=== PATIENT | male | born 1970 | race Caucasian/White ===

== ENCOUNTER 2020-10-08 10:16 | Emergency (ER) | payer SELFPAY ==
[2020-10-08 10:19] VITALS: BP 128/76; PULSE 83; RESP 16; TEMP 36.6; O2SAT 96; BMI 29.9
--- NOTE | 2020-10-08 10:33 | ED.GENADULT ---
HPI - General Adult General Chief complaint: General Medical Stated complaint: insect bite Time Seen by Provider: 10/08/20 10:33 Source: patient Limitations: no limitations History of Present Illness HPI narrative: Patient prevents with left thigh redness after being stung or bit by an insect approximately a day and half ago. Patient states the redness has increased. Patient states he waited in the ER 4 hours yesterday was never seen. Patient denies any allergies to antibiotics. Patient denies shortness of breath fever chills. Patient states he has been fully vaccinated for COVID-19. Patient takes no current medications and denies past medical history. Symptoms are mild at this time Related Data Previous Rx's Medication Instructions Recorded cephalexin 500 mg PO TID 10 Days #30 cap 10/08/20 doxycycline hyclate 100 mg PO BID 10 Days #20 cap 10/08/20 Allergies Allergy/AdvReac Type Severity Reaction Status Date / Time No Known Allergies Allergy Unverified 12/12/19 17:14 Review of Systems Constitutional: Constitutional: Denies chills, Denies fever(s) and Denies headache(s) ENT: Denies headache(s) Cardiovascular: Cardiovascular: Denies chest pain and Denies dyspnea Respiratory: Respiratory: Denies cough and Denies dyspnea Gastrointestinal: Gastrointestinal: Denies diarrhea, Denies nausea and Denies vomiting Neurologic: Denies headache(s) Allergic/Immunologic: Comments: Left inner thigh or erythema redness PMFSH Past Medical History Attestation statement: The following information was validated with the patient. Social History Social History Advance Directives: Yes Advance Directives Information Provided: Yes Advance Directives on File: No Physical Exam Vital Signs: Vital Signs: Last Vital Signs Temp 97.8 F 10/08/20 10:19 Pulse 83 10/08/20 10:19 Resp 16 10/08/20 10:19 BP 128/76 10/08/20 10:19 Pulse Ox 96 10/08/20 10:19 Body Mass Index 29.9 vital signs have been reviewed as normal and appeared to be correct. Blood pressure normal. Heart rate normal. Respiration rate normal. Temperature normal. Oxygen saturation normal. Appearance: Alert. Oriented X3. No acute distress. Head: Normal external exam. Normocephalic. Atraumatic. Eyes: PERRLA. EOMI. Conjunctiva and sclera normal. Eyelids normal. ENT: Pharynx normal. Uvula midline. Moist mucous membranes. Neck: Soft full range of motion CVS: Heart regular rate and rhythm no murmurs and rubs Respiratory: Breath sounds are clear to auscultation bilaterally. No accessory muscle use noted. Skin: Left inner thigh areas erythema size of palm no area of lymphangitis at this time no obvious abscess or pain on palpation Extremities: No lower extremity edema. Extremities exhibit normal range of motion. Neuro: Oriented X 3. No motor deficit. No sensory deficit. Reflexes normal. 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-house Plan the patient patient on doxycycline and Keflex at this time follow-up and return if symptoms worsen Discharge Plan Discharge Clinical Impression: Cellulitis Patient Disposition: Home, Self-Care Instructions: Cellulitis (ED) Additional Instructions: Return if increased redness pain or fever Finish antibiotics as directed Prescriptions: New doxycycline hyclate 100 mg capsule 100 mg PO BID 10 Days Qty: 20 RF: 0 cephalexin 500 mg capsule 500 mg PO TID 10 Days Qty: 30 RF: 0 Stand Alone Forms: Work/School Release Interventions: ED Discharge Assessment Last Done: 10/08/20 11:01 Discharge Date/Time: 10/08/20 11:01
== END 2020-10-08 11:01 | disposition home or self-care (01) ==
PROVIDERS: Emergency Provider Emergency Medicine
DX: L03.116 Cellulitis of left lower limb (principal)
CPT/HCPCS: 99282; 99283

== ENCOUNTER 2021-12-02 08:55 | Emergency (ER) | payer SELFPAY ==
[2021-12-02 08:59] VITALS: BP 134/77; PULSE 71; RESP 16; TEMP 37.1; O2SAT 98; BMI 35.7
--- NOTE | 2021-12-02 09:46 | ED.BACK ---
HPI - Back Pain/Injury General Chief Complaint: Back Pain/Injury Stated Complaint: back pain work related Time Seen by Provider: 12/02/21 09:32 Source: patient Mode of arrival: ambulatory Limitations: language barrier (Senegalese-speaking) History of Present Illness HPI Narrative: 51-year-old male presenting to the ER with complaints of left lower back pain near his buttocks radiating to the buttock/left lower leg that started yesterday after he was doing yd work. He denies ever having back pain in the past although reports his was massaging his back/ buttocks yesterday and he reported that that was making his pain a bit better. He reports he took [id number] medication no symptomatic relief. He denies any recent falls or trauma. He denies any fevers, chills, dizziness, headaches, neck pain / stiffness, trouble swallowing or breathing, chest pain or shortness of breath, dyspnea exertion, orthopnea, palpitation paresthesias, abdominal pain, flank pain, dysuria, hematuria, abnormal penile discharge, rashes, others with similar symptoms, any history of IV drug use, urinary bowel incontinence or retention or any other symptoms complaints or concerns at this time. MD elicited complaint: back pain Onset (ago): day(s) (yesterday) Timing: constant and progressively worsening Severity: moderate Similar Symptoms Previously: No Quality: aching, spasming and throbbing Location: left lower back (near buttocks) Radiation: left upper leg Exacerbating factors: movement, sitting upright, walking and lifting Relieving factors: none Context: while lifting, turning/twisting and bending Associated symptoms: denies other symptoms Treatments prior to arrival: cold therapy, heat therapy, NSAIDS and acetaminophen Work related injury: No Related Data Previous Rx's Medication Instructions Recorded cephalexin 500 mg capsule 500 mg PO TID 10 days #30 caps 10/08/20 doxycycline hyclate 100 mg capsule 100 mg PO BID 10 days #20 caps 10/08/20 cyclobenzaprine 10 mg tablet 10 mg PO Q8H #14 tabs 12/02/21 ibuprofen 800 mg tablet 800 mg PO Q8H PRN pain #14 tabs 12/02/21 oxycodone 5 mg tablet 5 mg PO Q6H PRN pain #14 tabs 12/02/21 prednisone 20 mg tablet 40 mg PO DAILY rash 5 days #10 tabs 12/02/21 Allergies Allergy/AdvReac Type Severity Reaction Status Date / Time No Known Allergies Allergy Unverified 12/12/19 17:14 Review of Systems Review of Systems: Constitutional : No trauma, No Weight loss, No Fever, No Chills, ENT/Mouth : No Hearing loss, No Ear Pain, No Nasal Congestion, No Sinus Pain, No Hoarseness, No sore throat, No Rhinorrhea, No Swallowing Difficulty Cardiovascular : No Chest Pain, No SOB Respiratory : No Cough, No Dyspnea Gastrointestinal : No Nausea, No Vomiting, No Diarrhea, No abdominal Pain, No Hematochezia, No Melena Genitourinary : No Dysuria, No Urinary Frequency, No Hematuria, No Urinary or Bowel Incontinence/retention Musculoskeletal : + Back pain, No neck pain, No joint stiffness, No joint swelling Skin : No Skin Lesions, No rash or signs of infection Neuro : No Weakness, No Numbness, No Paresthesias, No headache, no loss of bowel or bladder incontinence, no saddle anesthesia, Focal weakness, + radiation Denies history of IV drug usage. Yes all other systems are reviewed and are negative [facility] Past Medical History Attestation statement: The following information was validated with the patient. Source: old records reviewed and nursing notes reviewed Social History Social History Advance Directives: No Advance Directives Information Provided: No Physical Exam Vital Signs: Vital Signs: Last Vital Signs Temp 98.8 F 12/02/21 08:59 Pulse 71 12/02/21 08:59 Resp 16 12/02/21 08:59 BP 134/77 12/02/21 08:59 Pulse Ox 98 12/02/21 08:59 O2 Del Method 12/02/21 08:59 BMI result Body Mass Index 35.7 vital signs have been reviewed as normal and appeared to be correct. Blood pressure normal. Heart rate normal. Respiration rate normal. Temperature normal. Oxygen saturation normal. Appearance: Alert. Oriented X3. No acute distress. Head: Normal external exam. Normocephalic. Atraumatic. No [place] signs noted. No raccoon eyes noted Eyes: PERRLA. EOMI. Conjunctiva and sclera normal. Eyelids normal. ENT: EAC normal. TM's Normal. Pharynx normal. Uvula midline. Moist mucous membranes. No trismus noted. No drooling noted. No muffled voice noted. Neck: Normal inspection. Neck supple. FROM. No adenopathy. Thyroid Normal. No meningeal signs. No neck mass noted. CVS: Normal heart rate and rhythm. Heart sound normal. No murmurs noted. Pulses normal throughout. Respiratory: No respiratory distress. Painless inspiration. Breath sounds normal. No wheezes/rales/rhonchi noted. Chest nontender. No accessory muscle usage noted or decreased air movement noted. Abdomen: Soft and nontender. Bowel sounds normal in all 4 quadrants. No distention noted. No organomegaly noted. No visible injury noted. Back: No CVA tenderness. Full range of motion noted. No obvious deformities, or edema. Mild para-spinal muscular tenderness from lumbar region to coccyx. Full ROM in back and lower extremities. 5/5 strength hip extension/flexion, abduction, adduction. Mild Lumbar pain with hip flexion against resistance. Straight leg raise test negative on right; Straight leg raise test negative on left; Reflexes normal ankle and knee bilaterally; EHL motor strength normal bilaterally. No rashes/lesion/induration/fluctuance or signs infection noted. Skin: Skin warm and dry. Normal skin color. Normal skin turgor. No rashes/lesions/lacerations noted. Extremities: No lower extremity edema. Extremities exhibit normal range of motion. Extremities nontender. Neuro: Oriented X 3. No motor deficit. No sensory deficit. Reflexes normal. Patient has a normal steady gait. Course Course Course Narrative: Pt c likely muscular pain, but could be herniated disc. Neuro exam shows no deficits. Not c/w AAA/epidural abscess/dissection.No high risk Hx (Incont, fever, immunosupp, recent surgery/LP, coag, signif trauma, wt loss, puls mass, hx/o Ca, TB, or IVDU) to warrant MRI/CT today. Not c/w Pyelo/UTI/kidney stone/spinal fx. Not cauda equina syndrome. Imaging not currently indicated. DC c meds and f/u. MDM - Back Pain/Injury Medical Records Attestation: I reviewed the patient's medical records. Discharge Plan Discharge Clinical Impression: Strain of lumbar region, Lumbar radiculopathy Patient Disposition: Home, Self-Care Instructions: Low Back Strain (ED), Lumbar Radiculopathy (ED), Lower Back Exercises (ED) Prescriptions: New cyclobenzaprine 10 mg tablet 10 mg PO Q8H Qty: 14 0RF oxycodone 5 mg tablet 5 mg PO Q6H PRN (Reason: pain) Qty: 14 0RF Rx Instructions: Partial Fill upon patient request. prednisone 20 mg tablet 40 mg PO DAILY 5 Days Qty: 10 0RF ibuprofen 800 mg tablet 800 mg PO Q8H PRN (Reason: pain) Qty: 14 0RF No Action doxycycline hyclate 100 mg capsule 100 mg PO BID 10 Days Qty: 20 0RF cephalexin 500 mg capsule 500 mg PO TID 10 Days Qty: 30 0RF Print Language: Senegalese
[2021-12-02] MEDS: oxyCODONE HCl Immed Release 5 MG TABLET PO (10:08)
[2021-12-02] MEDS: Cyclobenzaprine HCl 10 MG TABLET PO (10:08)
== END 2021-12-02 10:13 | disposition home or self-care (01) ==
PROVIDERS: Emergency Provider Emergency Medicine Emergency Medical Services
DX: M54.16 Radiculopathy, lumbar region (principal); Z79.899 Other long term (current) drug therapy
CPT/HCPCS: 99283

== ENCOUNTER 2023-08-30 08:48 | Outpatient (AMB) | payer OTHER, SELFPAY ==
--- NOTE | 2023-08-30 08:59 | A.OFFPC_ITS ---
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 Review of the notes ER visit 12/14/2021 for back pain doing yd work was given muscle relaxants steroids anti-inflammatory and narcotic. 10/13/2020 ear visit for an insect bite treated as cellulitis doxycycline cephalexin. [facility] Family History (Updated 08/30/23 @ 09:48 by Mely Wesley MD) Mother Diabetes Hypertension Hypercholesterolemia Father Skin cancer Colon cancer Brother No problems noted. Brother No problems noted. Sister No problems noted. Sister No problems noted. Daughter No problems noted. Son No problems noted. Son No problems noted. Social History (Updated 08/30/23 @ 09:51 by Mely Wesley MD) Housing: House Alcohol intake: never Patient Tobacco Use Status: Never used Tobacco Tobacco use type: Cigarette e-Cigarette/Vaping Use: Never Used Second Hand Smoke Exposure: No service: No Current occupational status: employed Cognitive needs: No Hearing needs: No Vision needs: No Questionnaire PHQ-9 Over the last 2 weeks, how often have you been bothered by any of the following problems? 1. Little interest or pleasure in doing things: not at all 2. Feeling down, depressed, or hopeless: not at all 3. Trouble falling or staying asleep, or sleeping too much: not at all 4. Feeling tired or having little energy: not at all 5. Poor appetite or overeating: not at all 6. Feeling bad about yourself - or that you are a failure or have let yourself or your family down: not at all 7. Trouble concentrating on things, such as reading the newspaper or watching television: not at all 8. Moving or speaking so slowly that other people could have noticed. Or the opposite - being so fidgety or restless that you have been moving around a lot more than usual: not at all 9. Thoughts that you would be better off or of hurting yourself in some way: not at all Total score: 0 Depression Screening Interpretation: Negative Depression Screening Done: Yes Source: Developed by Drs. Rufus Langston, Gemma Tobar, Constantine Ferrer and colleagues, with an educational gloria from [employer]. Thrive Questionnaire Date Thrive assessed: 08/30/23 I am a: Patient What is your living situation today?: I have a steady place to live Within the past 12 months, did the food you bought not last and you didn't have the money to get more?: Never true Within the past 12 months, did you worry whether your food would run out before you got money to buy more?: Never true Do you have trouble paying for medicines?: No Do you have trouble getting transportation to medical appointments?: No Do you have trouble paying your heating and electricity bill?: No Do you have trouble taking care of your child, family member or friend?: No Do you have trouble with day-to-day activities such as bathing, preparing meals, shopping, managing finances, etc.?: No Are you currently unemployed and looking for a job?: No Are you interested in more education?: No Currently or been in a relationship where the following occur: no concerns reported THRIVE Score: 0 AUDIT C Alcohol Use Questionnaire (AUDIT-C) 1. How often do you have a drink containing alcohol?: Never 3. How often do you have six or more drinks on one occasion?: Never Total Score: 0 TONY-7 AMB Questionnaire TONY-7 Date TONY - 7 assessed: 08/30/23 Feeling nervous, anxious, or on edge: 0 = Not at all Not being able to stop or control worryin = Not at all Worrying too much about different things: 0 = Not at all Trouble relaxin = Not at all Being so restless that it is hard to sit still: 0 = Not at all Becoming easily annoyed or irritable: 0 = Not at all Feeling afraid as if something awful might happen: 0 = Not at all Total TONY-7 score (0-4 normal; 5-9 mild; 10-14 moderate; 15-21 severe): 0 Source: Developed by Drs. Rufus Langston, Gemma Tobar, Constantine Ferrer and colleagues, with an educational gloria from [employer]. Physical exam (Primary Care) Vital Signs: Last Vital Signs Pulse 89 08/30/23 09:00 BP 140/88 H 08/30/23 09:00 Pulse Ox 99 08/30/23 09:00 Oxygen Delivery Method Room Air 08/30/23 09:00 BMI result Body Mass Index 36.8 Tobacco/Smoking Status: Tobacco use Status Tobacco use date assessed 08/30/23 08/30/23 09:11 Patient Tobacco Use Status Never used Tobacco 08/30/23 09:11 Tobacco use type Cigarette 08/30/23 09:11 e-Cigarette/Vaping Use Never Used 08/30/23 09:11 PHQ-9: PHQ-9 Score PHQ-9: Total score 0 08/30/23 09:11 Depression Screening Interpretation: Negative Thrive Assessment: Date of Thrive Assessment Date Thrive assessed 08/30/23 08/30/23 09:11 Currently or been in a relationship where the following occur: no concerns reported Const General: alert; No acute distress Eyes Conjunctivae: conjunctivae normal Resp Auscultation: clear to auscultation bilaterally Cardio Rate: regular rate Rhythm: regular rhythm GI Inspection: Yes normal to inspection Extrem General: Yes normal to inspection and No edema Assessment and Plan Assessment & Plan (1) History of right knee surgery: Code(s): Z98.890 - Other specified postprocedural states (2) Impaired glucose tolerance: Code(s): R73.02 - Impaired glucose tolerance (oral) Plan: Decrease the amount of carbohydrate intake, pasta, bread, rice and potatoes are all sugar and that is aside from all the sweet stuff, remember that fruits are good but they are Sweet also. (3) Hypercholesterolemia: Code(s): E78.00 - Pure hypercholesterolemia, unspecified Plan: Avoid fried foods, chicken skin, eggs, butter margarine, pastries and meat. Be it pork or beef they have a lot of cholesterol (4) Colon cancer screening: Code(s): Z12.11 - Encounter for screening for malignant neoplasm of colon Plan: Patient is reminded about colon cancer screening. (5) Family history of colon cancer: Comment: father 62 years old Code(s): Z80.0 - Family history of malignant neoplasm of digestive organs (6) Family history of skin cancer: Code(s): Z80.8 - Family history of malignant neoplasm of other organs or systems Orders: Orders Hemoglobin A1c Today R73.02 - Impaired glucose tolerance (oral) Comprehensive Met. Panel Today R73.02 - Impaired glucose tolerance (oral) Vitamin B12 and Folate Today E78.00 - Pure hypercholesterolemia, unspecified Prostate Specific Antigen Scr Today E78.00 - Pure hypercholesterolemia, unspecified Free T4 (Free Thyroxine) Today E78.00 - Pure hypercholesterolemia, unspecified Complete Blood Count Auto Diff Today E78.00 - Pure hypercholesterolemia, unspecified Lipid Panel Today E78.00 - Pure hypercholesterolemia, unspecified Thyroid Stimulating Hormone Today E78.00 - Pure hypercholesterolemia, unspecified Referrals Gastroenterology Referral Z12.11 - Encounter for screening for malignant neoplasm of colon, Z80.0 - Family history of malignant neoplasm of digestive organs Dermatology Referral Z80.8 - Family history of malignant neoplasm of other organs or systems Medications: Discontinued doxycycline hyclate Discontinued Reason: Patient Completed Course 100 mg PO BID 10 days 20 caps 0RF cephalexin Discontinued Reason: Patient Completed Course 500 mg PO TID 10 days 30 caps 0RF cyclobenzaprine Discontinued Reason: Patient no longer taking 10 mg PO Q8H 14 tabs 0RF ibuprofen Discontinued Reason: Patient no longer taking 800 mg PO Q8H PRN 14 tabs 0RF pain oxycodone Partial Fill upon patient request. Discontinued Reason: Patient no longer taking 5 mg PO Q6H PRN 14 tabs 0RF pain prednisone Discontinued Reason: Patient Completed Course 40 mg (2 x 20 mg) PO DAILY 5 days 10 tabs 0RF rash Coding Level of Care Code New Pt Level 4 (13548) Diagnoses History of right knee surgery Z98.890 Impaired glucose tolerance R73.02 Hypercholesterolemia E78.00 Colon cancer screening Z12.11 Family history of colon cancer Z80.0 Family history of skin cancer Z80.8
[2023-08-30 09:00] VITALS: BP 140/88; PULSE 89; O2SAT 99; BMI 36.8
[2023-08-30 09:45] VITALS: BP 120/80
== END 2023-08-30 10:06 | disposition home or self-care (01) ==
PROVIDERS: PCP Internal Medicine; Visit Provider Internal Medicine
DX: Z98.890 Other specified postprocedural states (principal); R73.02 Impaired glucose tolerance (oral); E78.00 Pure hypercholesterolemia, unspecified; Z12.11 Encounter for screening for malignant neoplasm of colon; Z80.0 Family history of malignant neoplasm of digestive organs; Z80.8 Family history of malignant neoplasm of other organs or systems
CPT/HCPCS: 99204

== ENCOUNTER 2023-08-31 07:22 | Outpatient (REF) | payer OTHER, SELFPAY ==
[2023-08-31 07:46] LABS: MANUAL DIFF FLAG NO
[2023-08-31 08:18] LABS: Basophils Percent Auto 0.5 % (0-2); Eosinophils Absolute Auto 0.3 X10*3/uL (0.0-0.4); Eosinophils Percent Auto 5.2 % (0-4); Hematocrit 33.4 % (42.0-52.0); Hemoglobin 11.7 g/dl (14.0-18.0); Imm Gran Abs Auto 0.02 X10*3/uL (0.00-0.03); Imm Gran Pct Auto 0.3 % (0.0-0.4); Lymphocytes Absolute Auto 1.3 X10*3/uL (1.2-4.9); Lymphocytes Percent Auto 23.3 % (20-40); Mean Corpuscular Hemoglobin 29.3 pg (27.0-33.0); Mean Corpuscular Volume 83.5 fL (80.0-98.0); Mean Platelet Volume 11.1 fL (9.4-12.4); Monocytes Absolute Auto 0.5 X10*3/uL (0.1-1.2); Monocytes Percent Auto 8.9 % (2-11); Neutrophils Absolute Auto 3.6 x10*3/uL (2.0-8.3); Neutrophils Percent Auto 61.8 % (45-73); Platelet Count 171 X10*3/uL (160-400); Red Cell Distribution Width 12.3 % (11.0-16.0); White Blood Count 5.8 X10*3/uL (4.8-10.8)
[2023-08-31 08:31] LABS: Estimated Average Glucose 114 mg/dL; Hemoglobin A1c % 5.6 % (<6.0)
[2023-08-31 09:14] LABS: Alanine Aminotransferase 20 U/L (0-40); Albumin Level 4.2 g/dL (3.5-5.0); Alkaline Phosphatase 90 U/L (39-117); Anion Gap 14 (12-20); Aspartate Amino Transferase 18 U/L (5-37); Bilirubin Total 0.6 mg/dL (0.0-1.0); Blood Urea Nitrogen 11 mg/dL (9-16); Calcium 9.3 mg/dL (8.4-10.2); Carbon Dioxide 26 mmol/L (22-29); Chloride 103 mmol/L (96-108); Cholesterol 216 mg/dL (<200); Estimated Glomerular Filt Rate > 60; Glucose Random 101 mg/dL (60-115); HDL Cholesterol 37 mg/dL (>40); LDL Cholesterol Calculated 138 mg/dL (<100); Potassium 4.1 mmol/L (3.3-5.1); Sodium 139 mmol/L (135-145); Total Protein 7.3 g/dL (6.5-8.0); Triglycerides 206 mg/dL (<150)
[2023-08-31 09:33] LABS: Folate 12.2 ng/mL (> or = 4.0); Prostate Specific Antigen Scr 0.33 ng/mL (<0.05-4.0); Vitamin B12 337 pg/mL (200-900)
== END 2023-08-31 07:23 | disposition home or self-care (01) ==
LOC: HO.LAB 07:22
PROVIDERS: PCP Internal Medicine; Visit Provider Internal Medicine
DX: E78.00 Pure hypercholesterolemia, unspecified (principal); R73.02 Impaired glucose tolerance (oral); Z12.5 Encounter for screening for malignant neoplasm of prostate
CPT/HCPCS: 36415; 80053; 80061; 82607; 82746; 83036; 84153; 84439; 84443; 85025

== ENCOUNTER → 2023-09-29 10:56 | Outpatient (BNV) | payer OTHER, SELFPAY | PROVIDERS: PCP Internal Medicine; Referring Provider Internal Medicine; Visit Provider Internal Medicine | DX: D64.9 Anemia, unspecified (principal) | CPT/HCPCS: 99203 ==

== ENCOUNTER 2023-10-03 09:04 | Outpatient (AMB) | payer OTHER, SELFPAY ==
--- NOTE | 2023-10-03 09:18 | MHC.PC.OV ---
Vital Signs 10/03/23 09:19 10/03/23 09:50 Height 5 ft 5 in Weight 222 lb BMI 36.9 BP 140/78 H 130/80 Blood Pressure Location Lt brachial Lt brachial Position Sitting Sitting Pulse 81 Pulse Source Pulse Oximeter Pulse Oximetry (%) 98 Oxygen Delivery Method Room Air Intake Visit Reasons: follow up on labs Intake Note: patient did have coffee prior to coming into appt. Allergies No Known Allergies Allergy (Verified 10/03/23 09:19) Tobacco use date assessed: 08/30/23 Dental Screening Dental Screen Date: 10/03/23 Did you have a dental visit in the last 12 months?: No Did you have a dental problem in the last 6 months where you did not have access to dental care?: No Was dental information given to patient?: No HPI follow up on labs HPI Details 53-year-old obese male with a history of impaired glucose tolerance hypercholesterolemia last seen in 08/30/2023 patient was reminded about colon cancer screening with family history of colon cancer. 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 With regards to his anemia patient was sent to Hematology Oncology mild normocytic anemia was advised to monitor for now. [facility] Family History Mother Diabetes Hypertension Hypercholesterolemia Father Skin cancer Colon cancer Brother No problems noted. Brother No problems noted. Sister No problems noted. Sister No problems noted. Daughter No problems noted. Son No problems noted. Son No problems noted. Social History (Updated 09/29/23 @ 11:14 by Ivan Melendez) Household Members: Family Housing: House Alcohol intake: never Patient Tobacco Use Status: Never used Tobacco Tobacco use type: Cigarette e-Cigarette/Vaping Use: Never Used Second Hand Smoke Exposure: No service: No Current occupational status: employed Cognitive needs: No Hearing needs: No Vision needs: No Questionnaire PHQ-9 Over the last 2 weeks, how often have you been bothered by any of the following problems? 1. Little interest or pleasure in doing things: not at all 2. Feeling down, depressed, or hopeless: not at all 3. Trouble falling or staying asleep, or sleeping too much: not at all 4. Feeling tired or having little energy: not at all 5. Poor appetite or overeating: not at all 6. Feeling bad about yourself - or that you are a failure or have let yourself or your family down: not at all 7. Trouble concentrating on things, such as reading the newspaper or watching television: not at all 8. Moving or speaking so slowly that other people could have noticed. Or the opposite - being so fidgety or restless that you have been moving around a lot more than usual: not at all 9. Thoughts that you would be better off or of hurting yourself in some way: not at all Total score: 0 Depression Screening Interpretation: Negative Depression Screening Done: Yes Source: Developed by Drs. Rufus Langston, Gemma Tobar, Constantine Ferrer and colleagues, with an educational gloria from [employer]. Thrive Questionnaire Date Thrive assessed: 08/30/23 AUDIT C Alcohol Use Questionnaire (AUDIT-C) 1. How often do you have a drink containing alcohol?: Never 3. How often do you have six or more drinks on one occasion?: Never Total Score: 0 TONY-7 AMB Questionnaire TONY-7 Date TONY - 7 assessed: 08/30/23 Source: Developed by Drs. Rufus Langston, Gemma Tobar, Constanitne Ferrer and colleagues, with an educational gloria from [employer]. Physical exam (Primary Care) Vital Signs: Last Vital Signs Pulse 81 10/03/23 09:19 BP 140/78 H 10/03/23 09:19 Pulse Ox 98 10/03/23 09:19 Oxygen Delivery Method Room Air 10/03/23 09:19 BMI result Body Mass Index 36.9 Tobacco/Smoking Status: Tobacco use Status Tobacco use date assessed 08/30/23 10/03/23 09:19 Patient Tobacco Use Status Never used Tobacco 10/03/23 09:19 Tobacco use type Cigarette 10/03/23 09:19 e-Cigarette/Vaping Use Never Used 10/03/23 09:19 PHQ-9: PHQ-9 Score PHQ-9: Total score 0 10/03/23 09:23 Depression Screening Interpretation: Negative Thrive Assessment: Date of Thrive Assessment Date Thrive assessed 08/30/23 10/03/23 09:19 Const General: alert; No acute distress Eyes Conjunctivae: conjunctivae normal Resp Auscultation: clear to auscultation bilaterally Cardio Rate: regular rate Rhythm: regular rhythm GI Inspection: Yes normal to inspection Extrem General: Yes normal to inspection and No edema Assessment and Plan Assessment & Plan (1) Family history of colon cancer: Comment: father 62 years old Code(s): Z80.0 - Family history of malignant neoplasm of digestive organs Plan: Patient has a schedule with the 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 (3) Hypercholesterolemia: Code(s): E78.00 - Pure hypercholesterolemia, unspecified Plan: Avoid fried foods, chicken skin, eggs, butter margarine, pastries and meat. Be it pork or beef they have a lot of cholesterol LDL goal of less than 130 and triglyceride of less than 150 (4) Anemia: Code(s): D64.9 - Anemia, unspecified Plan: Normocytic present since 2012 and will continue to monitor Coding Level of Care Code Est Pt Level 4 (85902) Diagnoses Family history of colon cancer Z80.0 Impaired glucose tolerance R73.02 Hypercholesterolemia E78.00 Anemia D64.9
[2023-10-03 09:19] VITALS: BP 140/78; PULSE 81; O2SAT 98; BMI 36.9
[2023-10-03 09:50] VITALS: BP 130/80
== END 2023-10-03 09:53 | disposition home or self-care (01) ==
PROVIDERS: PCP Internal Medicine; Visit Provider Internal Medicine
DX: Z80.0 Family history of malignant neoplasm of digestive organs (principal); R73.02 Impaired glucose tolerance (oral); E78.00 Pure hypercholesterolemia, unspecified; D64.9 Anemia, unspecified
CPT/HCPCS: 99214

== ENCOUNTER 2024-01-17 09:11 | Outpatient (AMB) | payer OTHER, SELFPAY ==
--- NOTE | 2024-01-17 09:13 | A.OFFPC_ITS ---
Vital Signs 3 01/17/24 09:14 Height 5 ft 5 in Weight 221 lb BMI 36.8 BP 122/62 Blood Pressure Location Lt brachial Position Sitting Pulse 74 Pulse Source Pulse Oximeter Pulse Oximetry (%) 98 Oxygen Delivery Method Room Air Intake Visit Reasons: PE Allergies No Known Allergies Allergy (Verified 01/17/24 09:14) Medication List - Last Reconciled 01/17/24 by Mely Wesely MD No Known Home Meds Tobacco use date assessed: 08/30/23 Dental Screening Dental Screen Date: 10/03/23 HPI PE 2 HPI0 Details 76-year-old female with multiple medical problem COPD generalized anxiety disorder coming in for an acute problem last seen in October 04 having a cough. Patient's mammogram is up-to-date bone density is up-to-date his blood work was done in September showing impaired glucose tolerance and hypercholesterolemia. colon test 01/2024 [facility] Medical History (Updated 01/17/24 @ 10:02 by Mely Wesley MD) Chronic anemia Family History Mother Diabetes Hypertension Hypercholesterolemia Father Skin cancer Colon cancer Brother No problems noted. Brother No problems noted. Sister No problems noted. Sister No problems noted. Daughter No problems noted. Son No problems noted. Son No problems noted. Social History (Updated 09/29/23 @ 11:14 by Ivan Melendez) Household Members: Family Housing: House Alcohol intake: never Patient Tobacco Use Status: Never used Tobacco Tobacco use type: Cigarette e-Cigarette/Vaping Use: Never Used Second Hand Smoke Exposure: No service: No Current occupational status: employed Cognitive needs: No Hearing needs: No Vision needs: No Questionnaire PHQ-9 Over the last 2 weeks, how often have you been bothered by any of the following problems? 1. Little interest or pleasure in doing things: not at all 2. Feeling down, depressed, or hopeless: not at all 3. Trouble falling or staying asleep, or sleeping too much: not at all 4. Feeling tired or having little energy: not at all 5. Poor appetite or overeating: not at all 6. Feeling bad about yourself - or that you are a failure or have let yourself or your family down: not at all 7. Trouble concentrating on things, such as reading the newspaper or watching television: not at all 8. Moving or speaking so slowly that other people could have noticed. Or the opposite - being so fidgety or restless that you have been moving around a lot more than usual: not at all 9. Thoughts that you would be better off or of hurting yourself in some way: not at all Total score: 0 Depression Screening Interpretation: Negative Depression Screening Done: Yes Source: Developed by Drs. Rufus Langston, Gemma Tobar, Constantine Ferrer and colleagues, with an educational gloria from [employer]. Thrive Questionnaire Date Thrive assessed: 08/30/23 AUDIT C Alcohol Use Questionnaire (AUDIT-C) 1. How often do you have a drink containing alcohol?: Never 3. How often do you have six or more drinks on one occasion?: Never Total Score: 0 TONY-7 AMB Questionnaire TONY-7 Date TONY - 7 assessed: 08/30/23 Source: Developed by Drs. Rufus Langston, Constantine Vo and colleagues, with an educational gloria from [employer]. Review of Systems Const Denies poor appetite and Denies weakness Eyes Denies no additional complaints ENT Reports Normal hearing present, Denies dizziness, Denies nasal congestion, Denies tinnitus and Denies sore throat Card Denies chest pain, Denies syncope, Denies rapid heart rate and Denies dyspnea Resp Denies cough and Denies dyspnea GI Denies change in stool character, Reports constipation, Denies diarrhea, Denies nausea and Denies vomiting Denies dysuria and Denies urinary frequency Neuro Reports Normal hearing present, Denies confusion, Denies dizziness, Denies syncope and Denies weakness Psych Denies confusion Physical exam (Primary Care) Vital Signs: Last Vital Signs Pulse 74 01/17/24 09:14 BP 122/62 01/17/24 09:14 Pulse Ox 98 01/17/24 09:14 Oxygen Delivery Method Room Air 01/17/24 09:14 BMI result Body Mass Index 36.8 Tobacco/Smoking Status: Tobacco use Status Tobacco use date assessed 08/30/23 01/17/24 09:16 Patient Tobacco Use Status Never used Tobacco 01/17/24 09:16 Tobacco use type Cigarette 01/17/24 09:16 e-Cigarette/Vaping Use Never Used 01/17/24 09:16 PHQ-9: PHQ-9 Score PHQ-9: Total score 0 01/17/24 09:39 Depression Screening Interpretation: Negative Thrive Assessment: Date of Thrive Assessment Date Thrive assessed 08/30/23 01/17/24 09:16 Const General: alert and awake; No confusion Orientation/consciousness: No confusion HENMT Head: Yes normocephalic Ears: external ears normal and TM's normal bilaterally Face and sinus: Yes normal facial exam Mouth: moist mucous membranes Throat: Yes tonsils normal Eyes Conjunctivae: conjunctivae normal Pupils: Equal, round and reactive pupils present and Pupil accommodation reflex normal Direct Ophthalmoscopy: normal light reflex Neck Neck: No lymphadenopathy Thyroid: Thyroid normal Chest Chest palpation & inspection: normal inspection of the chest Resp Effort & Inspection: normal respiratory effort and no audible wheezes Auscultation: clear to auscultation bilaterally, no crackles, no wheezes and lung sounds not diminished Cardio Rate: regular rate Rhythm: regular rhythm Peripheral pulses: radial pulses present and dorsalis pedis present GI Other: guaiac neg prostate N Palpation (GI): no masses Auscultation: normal bowel sounds and normoactive bowel sounds Abdomen image: 2 1. acneiform dermatitis , mild 3-5 mm reddish papular rash multiple periumbilical to suprapubic area Male General Exam: Yes normal external exam Skin General skin exam: no rashes or lesions noted Rashes: no rashes Neuro General: deep tendon reflexes 2+ bilaterally and No confusion Cranial nerves: Yes Equal, round and reactive pupils present, Yes Midline tongue present, Yes Normal hearing present and Yes Ability to bilaterally elevate shoulders present Cognition (Neuro): normal cognition Gait exam (Neuro): Normal gait present Motor exam (neuro): 5/5 motor strength present throughout Deep tendon reflexes (DTR's): Right brachioradialis reflex intensity grade: 2+, Left brachioradialis reflex intensity grade: 2+, Right patellar reflex intensity grade: 2+ and Left patellar reflex intensity grade: 2+ Extrem General: No edema Office Procedures Flu Questionnaire Does the patient have a severe egg allergy?: No Does the patient have severe life threatening allergies?: No Does the patient have a fever or illness today?: No Has the patient ever had Guillain-Pho[place] Syndrome?: No Has the patient ever had any past reaction to a flu shot?: No Immunizations Fluarix Triv [id number] (PF) 45 mcg (15 mcg x 3)/0.5 mL IM syringe Performing Provider: Mely Wesley MD [place] [facility] Administered by: Mariela Luo CMA on 01/17/24 09:35 2 Dose Route Admin Location Dispensed Lot Number Expiration Date 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 0.5 mL IM Right Deltoid 0.5 mL [id number] 09/23/24 82152-105-28 Salt Rights 2 VIS Given Date VIS Provided VIS Publication Date 01/17/24 Single Vaccine 20 Eligibility Eligibility Date Funding Source Not [facility] Eligible 01/17/24 Private Coding Level of Care Code Est Pt Prev Care 40-64y(21746) Diagnoses Annual physical exam Z00.00 Chronic anemia D64.9 Impaired glucose tolerance R73.02 Hypercholesterolemia E78.00 Colon cancer screening Z12.11 Acneiform dermatitis L70.8 Assessment & Plan Assessment & Plan (1) Annual physical exam: Code(s): Z00.00 - Encounter for general adult medical examination without abnormal findings Category: Medical Plan: Patient is advised to eat healthy, keep well hydrated, keep active and have adequate sleep. (2) Chronic anemia: Code(s): D64.9 - Anemia, unspecified Category: Medical Plan: Patient has seen hematology oncology and no workup needed will continue to follow-up. Anemia has been present since 2013 (3) Impaired glucose tolerance: Code(s): R73.02 - Impaired glucose tolerance (oral) Category: Medical Plan: Decrease the amount of carbohydrate intake, pasta, bread, rice and potatoes are all sugar and that is aside from all the sweet stuff, remember that fruits are good but they are Sweet also. (4) Hypercholesterolemia: Code(s): E78.00 - Pure hypercholesterolemia, unspecified Category: Medical Plan: Avoid fried foods, chicken skin, eggs, butter margarine, pastries and meat. Be it pork or beef they have a lot of cholesterol LDL goal of less than 130 and triglyceride of less than 150 (5) Colon cancer screening: Code(s): Z12.11 - Encounter for screening for malignant neoplasm of colon Category: Medical Plan: Patient is reminded about colonoscopy (6) Acneiform dermatitis: Comment: abdomen Code(s): L70.8 - Other acne Category: Medical Plan: dermatology referral done Orders: Orders 2 Influenza [id number] Immunization Today Z23 - Encounter for immunization Comprehensive Met. Panel Today R73.02 - Impaired glucose tolerance (oral) Complete Blood Count Auto Diff Today E78.00 - Pure hypercholesterolemia, unspecified Hemoglobin A1c Today R73.02 - Impaired glucose tolerance (oral) Lipid Panel Today E78.00 - Pure hypercholesterolemia, unspecified Referrals 2 Dermatology Referral L70.8 - Other acne
[2024-01-17 09:14] VITALS: BP 122/62; PULSE 74; O2SAT 98; BMI 36.8
== END 2024-01-17 10:19 | disposition home or self-care (01) ==
PROVIDERS: PCP Internal Medicine; Visit Provider Internal Medicine
DX: Z00.00 Encounter for general adult medical examination without abnormal findings (principal); D64.9 Anemia, unspecified; R73.02 Impaired glucose tolerance (oral); E78.00 Pure hypercholesterolemia, unspecified; Z12.11 Encounter for screening for malignant neoplasm of colon; L70.8 Other acne; Z23 Encounter for immunization

== ENCOUNTER → 2024-01-17 09:11 | Outpatient (BNVA) | payer OTHER, SELFPAY | PROVIDERS: PCP Internal Medicine; Visit Provider Internal Medicine | DX: Z00.01 Encounter for general adult medical examination with abnormal findings (principal); D64.9 Anemia, unspecified; R73.02 Impaired glucose tolerance (oral); E78.00 Pure hypercholesterolemia, unspecified; L70.8 Other acne; Z23 Encounter for immunization | CPT/HCPCS: 90471; 90656; 96127 ==

== ENCOUNTER 2024-01-28 15:25 | Emergency (ER) | payer OTHER, SELFPAY ==
--- NOTE | ~2024-01-28 | CT_ITS ---
EXAMINATION: CT SOFT TISSUE NECK WITH CONTRAST CLINICAL INFORMATION: Left lower jaw/mandible swelling. abscess? COMPARISON: None available. TECHNIQUE: Following the intravenous administration of 60 mL of Omnipaque 350 intravenous contrast, helical imaging was performed in the axial plane with generation of coronal and sagittal reformatted images. This CT examination was performed using dose optimization techniques as appropriate, variously including the following: *Automated exposure control *Adjustment of mA and/or kV according to patient size (this includes techniques or standardized protocols for targeted exams where dose is matched to indication/reason for exam; i.e. extremities or head) *Use of iterative reconstruction technique DLP: 744 mGy-cm FINDINGS: There is a small volume of fluid and thickening around the left cheek involving the platysma fascial plane superficial to the left parotid gland. The left parotid gland is mildly asymmetrically enlarged compared to the right with increased vascularity. This suggests a parotidtitis unilateral to left side. No calcified stone seen in the path of the left parotid duct. No mass or abscess. No significant lymphadenopathy. The nasopharynx pharynx and hypopharynx structures are unremarkable. No prevertebral soft tissue swelling. The thyroid and submandibular glands are unremarkable. Normal enhancement of the vasculature. Lung apices normally aerated. Superior mediastinum unremarkable. Lobular mucosal disease in the inferior maxillary sinuses bilaterally. No evidence of dental abscess or periosteal abscess. CT/CT soft tissue neck w IV con IMPRESSION: Asymmetric enlargement of the left parotid gland with increased vascularity. There is a small volume of fluid and thickening around the left cheek involving the platysma fascial plane superficial to the left parotid gland. This suggests a parotiditis unilateral to left side. No mass or abscess. Electronically signed by: Bruno Dickerson MD 01/28/2024 06:01 PM NATALIE
[2024-01-28 15:28] VITALS: BP 124/81; PULSE 92; RESP 16; TEMP 36.4; O2SAT 97; BMI 38.2
--- NOTE | 2024-01-28 15:35 | ED.GENADULT ---
HPI - General Adult General Chief complaint: General Medical Stated complaint: swollen LT side of jaw Time Seen by Provider: 01/28/24 16:03 Source: patient Mode of arrival: ambulatory Limitations: no limitations History of Present Illness ED Provider: James Clarke PA-C HPI narrative: 54-year-old male with known history of acne informed dermatitis and high cholesterol presents to the ED left lower jaw facial swelling which occurred this morning. Patient denies any dental playing any recent trauma. Patient denies any drooling, change in voice, chest pain, shortness of breath, or any recent dental work. Related Data Previous Rx's ?Medication ?Instructions ?Recorded amoxicillin 875 mg-potassium 1 tab PO Q12H 10 days #20 tabs 01/28/24 clavulanate 125 mg tablet naproxen 500 mg tablet 500 mg PO BID PRN pain 7 days #14 01/28/24 tabs Allergies Allergy/AdvReac Type Severity Reaction Status Date / Time No Known Allergies Allergy Verified 01/28/24 15:28 Review of Systems Review of Systems: Left-sided facial redness Yes all other systems are reviewed and are negative [facility] Past Medical History Medical History (Updated 01/29/24 @ 00:00 by Jac Carrera) Chronic anemia Family History Family History Mother Diabetes Hypertension Hypercholesterolemia Father Skin cancer Colon cancer Brother No problems noted. Brother No problems noted. Sister No problems noted. Sister No problems noted. Daughter No problems noted. Son No problems noted. Son No problems noted. Social History Social History (Updated 09/29/23 @ 11:14 by Ivan Melendez) Household Members: Family Housing: House Alcohol intake: never Patient Tobacco Use Status: Never used Tobacco Tobacco use type: Cigarette e-Cigarette/Vaping Use: Never Used Second Hand Smoke Exposure: No Advance Directives: No Advance Directives Information Provided: No Do you have a plan to hurt others: No Plan service: No Current occupational status: employed Cognitive needs: No Hearing needs: No Vision needs: No Physical Exam ED Vital Signs: Vital Signs - 24 hr 01/28/24 18:23 01/28/24 19:34 Temperature 97.7 F 97.7 F Pulse Rate 64 64 Respiratory Rate 16 16 Blood Pressure 111/57 L 111/57 L Pulse Oximetry 98 98 Oxygen Delivery Method Room Air Room Air BMI result Body Mass Index 38.2 Const General: cooperative, healthy appearing, comfortable, no acute distress, well developed, alert, awake and Physically active Orientation/consciousness: patient oriented x3 [facility] Head: Yes normal to inspection, Yes No palpable skull fracture present, Yes normocephalic and Yes atraumatic Head images: 1. Positive swelling and slight redness. Negative for any tenderness on palpation. Negative for palpable mass. negative for palpable lymph nodes Eyes General: appearance normal, both eyes and all related structures Neck Neck: Yes normal visual inspection, Yes full ROM, Yes no lymphadenopathy, Yes no meningeal signs, Yes trachea midline, No anterior neck swelling and No tender Chest Chest palpation & inspection: normal inspection of the chest and normal palpation of entire chest wall Resp Effort & Inspection: normal respiratory effort and able to speak in complete sentences Auscultation: clear to auscultation bilaterally Cardio Jugular venous distension: no JVD Heart sounds: S1 normal heart sound present and S2 normal heart sound present GI Inspection: Yes normal to inspection Palpation (GI): Soft to palpation, not firm, nontender, no guarding and not rigid General: No CVA tenderness and Yes no CVA tenderness Back/Spine/Pelvis Back: no CVA tenderness, No CVA tenderness and No back tenderness Skin General skin exam: no rashes or lesions noted, elasticity normal and turgor normal Neuro General: patient oriented x3, gait normal, tone normal, moves all extremities, Normal light touch and pain sensation, no meningeal signs, no focal motor deficits, CN's II-XI intact bilaterally and normal sensation to monofilament Extrem General: Yes normal to inspection, Yes full ROM and Yes capillary refill normal Psych Appearance: grossly normal, well kempt and not disheveled Course Course Course Narrative: This is an RME: Additional HPI, ROS, PE not included below will be deferred to primary provider. RME assessment and note performed by: Heike Ramirez PA-C This is a 54-year-old male who presents emergency department with complaints of left-sided facial swelling which started this morning. No dental pain. No difficulty swallowing or speaking. Plan: Labs, further ER evaluation needed. Medications Administered Discontinued Medications Generic Name Dose Route Start Last Admin Trade Name Freq PRN Reason Stop Dose Admin Sodium Chloride 1,000 mls @ 999 mls/hr 01/28/24 16:38 01/28/24 19:23 Ns IV 01/28/24 17:38 Infused .Q1H1M STA Infusion Sodium Chloride 1,000 mls @ 999 mls/hr 01/28/24 17:31 01/28/24 19:23 Ns IV 01/28/24 18:31 Infused .Q1H1M STA Infusion Iohexol 100 ml 01/28/24 17:07 01/28/24 17:07 Iohexol 350 Mg/Ml 100 Ml Infus..Btl IV 01/28/24 17:08 60 ml ONCE ONE Administration Medical Decision Making Medical Decision Making MDM Narrative: 54-year-old male with left lower jaw swelling without any trauma. Labs show mild SHIVAM fluids. Patient is sent for soft tissue neck CT scan to rule out any retropharyngeal abscess, facial dental abscess, osteomyelitis, any Supa angina. Patient is speaking in clear sentences. 6:52pm: CT scan shows parents tinnitus without any abscesses. Negative for signs of retropharyngeal abscess. Patient will be discharged with antibiotics, recommend 2nd sour candies, and warm compression on the left side of face. Patient and explained worrisome signs or informed to return to the ED immediately not suspect a peritonsillar abscess, Supa angina, mastoiditis, or retropharyngeal abscess. Differential Diagnosis Differential Diagnoses: The differential diagnosis associated with the presentation includes ( Cellulitis, dental pain,) Admission/Observation Consideration of admission/observation: Escalation of care including admission/observation considered Lab Data [facility] Lab Attestation statement: I reviewed the patient's lab results. 01/28/24 15:40 01/28/24 18:40 Labs: Lab Results 01/28/24 01/28/24 Range/Units 15:40 18:40 WBC 8.8 (4.8-10.8) X10*3/uL RBC 4.14 L (4.60-5.80) X10*6/uL Hgb 12.2 L (14.0-18.0) g/dl Hct 34.9 L (42.0-52.0) % MCV 84.3 (80.0-98.0) fL MCH 29.5 (27.0-33.0) pg MCHC 35.0 (31.0-36.0) g/dl RDW 12.0 (11.0-16.0) % Plt Count 216 (160-400) X10*3/uL MPV 10.8 (9.4-12.4) fL Immature Gran % (Auto) 0.3 (0.0-0.4) % Neut % (Auto) 69.0 (45-73) % Lymph % (Auto) 18.8 L (20-40) % [place] % (Auto) 7.4 (2-11) % Eos % (Auto) 4.0 (0-4) % Baso % (Auto) 0.5 (0-2) % Lymph # (Auto) 1.7 (1.2-4.9) X10*3/uL [place] # (Auto) 0.7 (0.1-1.2) X10*3/uL Eos # (Auto) 0.4 (0.0-0.4) X10*3/uL Baso # (Auto) 0.0 (0.0-0.2) X10*3/uL Abs Immat Gran (auto) 0.03 (0.00-0.03) X10*3/uL Absolute Neuts (auto) 6.1 (2.0-8.3) x10*3/uL Absolute Nucleated RBC 0.000 (0.0-0.012) X10*3/uL Nucleated RBC % (auto) 0.0 (0.0-0.2) /100WBC Sodium 144 142 (135-145) mmol/L Potassium 4.2 4.5 (3.3-5.1) mmol/L Chloride 106 110 H (96-108) mmol/L Carbon Dioxide 28 23 (22-29) mmol/L Anion Gap 14 14 (12-20) BUN 15 15 (9-16) mg/dL Creatinine 1.48 H 1.21 (0.5-1.4) mg/dL Estim Creat Clear Calc 61.2 74.9 Estimated GFR 50 > 60 Random Glucose 127 H 100 (60-115) mg/dL Calcium 10.0 D 8.7 D (8.4-10.2) mg/dL Magnesium 2.1 (1.6-2.6) mg/dL Total Bilirubin 0.4 0.2 (0.0-1.0) mg/dL Direct Bilirubin 0.1 (0.0-0.5) mg/dL AST 22 20 (5-37) U/L ALT 25 21 (0-40) U/L Alkaline Phosphatase 88 77 (39-117) U/L Total Protein 7.8 6.6 (6.5-8.0) g/dL Albumin 4.4 3.8 (3.5-5.0) g/dL Independent Interpretation I performed an independent interpretation of an: CT Scan Radiology Impression Discussion of test interpretation with radiology: I have reviewed the radiologist's reading. Independent Historian Clinical information obtained from an independent historian. History obtained from or confirmed by: Other ( patient) External Record Review External record reviewed: Other (Visits) Discharge Plan Discharge Clinical Impression: Parotiditis Patient Disposition: Home, Self-Care Instructions: Sialoadenitis (ED), Adenitis (ED) Additional Instructions: return to the ED immediately for increased swelling, facial pain, neck swelling, drooling, change in voice, chest pain, shortness of breath, fever, chills, vomiting, or any other concerning symptoms. Recommend sucking on sour candy and warm compression rubbing of left jaw 4 times a day for 15 minutes. Recommend follow up wth PCP. CT/CT soft tissue neck w IV con IMPRESSION: Asymmetric enlargement of the left parotid gland with increased vascularity. There is a small volume of fluid and thickening around the left cheek involving the platysma fascial plane superficial to the left parotid gland. This suggests a parotiditis unilateral to left side. No mass or abscess. Electronically signed by: Bruno Dickerson MD 01/28/2024 06:01 PM [facility] Prescriptions: New naproxen 500 mg tablet 500 mg PO BID PRN (Reason: pain) 7 Days Qty: 14 0RF amoxicillin-pot clavulanate 875-125 mg tablet 1 tab PO Q12H 10 Days Qty: 20 0RF Stand Alone Forms: Work/School Release Interventions: ED Discharge Assessment Last Done: 01/28/24 19:34 Discharge Date/Time: 01/28/24 19:34 Print Language: Macedonian
[2024-01-28 15:42] LABS: MANUAL DIFF FLAG NO
[2024-01-28 15:54] LABS: Basophils Percent Auto 0.5 % (0-2); Eosinophils Absolute Auto 0.4 X10*3/uL (0.0-0.4); Hematocrit 34.9 % (42.0-52.0); Hemoglobin 12.2 g/dl (14.0-18.0); Imm Gran Abs Auto 0.03 X10*3/uL (0.00-0.03); Imm Gran Pct Auto 0.3 % (0.0-0.4); Lymphocytes Absolute Auto 1.7 X10*3/uL (1.2-4.9); Lymphocytes Percent Auto 18.8 % (20-40); Mean Corpuscular Hemoglobin 29.5 pg (27.0-33.0); Mean Corpuscular Volume 84.3 fL (80.0-98.0); Mean Platelet Volume 10.8 fL (9.4-12.4); Monocytes Absolute Auto 0.7 X10*3/uL (0.1-1.2); Monocytes Percent Auto 7.4 % (2-11); Neutrophils Absolute Auto 6.1 x10*3/uL (2.0-8.3); Platelet Count 216 X10*3/uL (160-400); Red Blood Count 4.14 X10*6/uL (4.60-5.80); White Blood Count 8.8 X10*3/uL (4.8-10.8)
[2024-01-28 15:58] LABS: Alanine Aminotransferase 25 U/L (0-40); Albumin Level 4.4 g/dL (3.5-5.0); Alkaline Phosphatase 88 U/L (39-117); Anion Gap 14 (12-20); Aspartate Amino Transferase 22 U/L (5-37); Bilirubin Direct 0.1 mg/dL (0.0-0.5); Bilirubin Total 0.4 mg/dL (0.0-1.0); Blood Urea Nitrogen 15 mg/dL (9-16); Carbon Dioxide 28 mmol/L (22-29); Chloride 106 mmol/L (96-108); Creatinine Clr Calc Pharmacy 61.2; Estimated Glomerular Filt Rate 50; Glucose Random 127 mg/dL (60-115); Magnesium 2.1 mg/dL (1.6-2.6); Potassium 4.2 mmol/L (3.3-5.1); Sodium 144 mmol/L (135-145); Total Protein 7.8 g/dL (6.5-8.0)
[2024-01-28 16:21] VITALS: BP 113/76; PULSE 89; RESP 16; TEMP 37; O2SAT 97
[2024-01-28] MEDS: 0.9 % Sodium Chloride 1,000 ML 999 ML IV ×2 (16:56→17:40)
[2024-01-28] MEDS: iohexoL 350 MG/ML 100 ML INFUS..BTL IV (17:07)
[2024-01-28 18:23] VITALS: BP 111/57; PULSE 64; RESP 16; TEMP 36.5; O2SAT 98
[2024-01-28 19:05] LABS: Alanine Aminotransferase 21 U/L (0-40); Albumin Level 3.8 g/dL (3.5-5.0); Alkaline Phosphatase 77 U/L (39-117); Anion Gap 14 (12-20); Aspartate Amino Transferase 20 U/L (5-37); Bilirubin Total 0.2 mg/dL (0.0-1.0); Blood Urea Nitrogen 15 mg/dL (9-16); Carbon Dioxide 23 mmol/L (22-29); Chloride 110 mmol/L (96-108); Creatinine Clr Calc Pharmacy 74.9; Estimated Glomerular Filt Rate > 60; Glucose Random 100 mg/dL (60-115); Potassium 4.5 mmol/L (3.3-5.1); Sodium 142 mmol/L (135-145); Total Protein 6.6 g/dL (6.5-8.0)
[2024-01-28 19:34] VITALS: BP 111/57; PULSE 64; RESP 16; TEMP 36.5; O2SAT 98
[2024-01-28 19:40] LABS: Calcium 8.7 mg/dL (8.4-10.2)
== END 2024-01-28 19:34 | disposition home or self-care (01) ==
PROVIDERS: Physician Assistant; Physician Assistant Medical; Emergency Provider Emergency Medicine Emergency Medical Services; PCP Internal Medicine
DX: K11.20 Sialoadenitis, unspecified (principal); R68.84 Jaw pain; E78.00 Pure hypercholesterolemia, unspecified; R11.0 Nausea; Z79.899 Other long term (current) drug therapy
CPT/HCPCS: 36415; 70491; 80048; 80053; 80076; 83735; 85025; 96360; 96361; 99284; Q9967

== ENCOUNTER 2025-01-20 13:38 | Outpatient (AMB) | payer OTHER, SELFPAY ==
[2025-01-20 13:42] VITALS: BP 128/84; PULSE 76; TEMP 36.3; O2SAT 96; BMI 35.6
--- NOTE | 2025-01-20 13:42 | MHC.PC.OV ---
Vital Signs 01/20/25 13:42 Height 5 ft 5 in Weight 214 lb 2 oz BMI 35.6 BP 128/84 Blood Pressure Location Lt brachial Position Sitting Pulse 76 Pulse Source Pulse Oximeter Temp 97.3 F Temp Source Temporal Artery Scan Pulse Oximetry (%) 96 Oxygen Delivery Method Room Air Intake Visit Reasons: annual exam Allergies No Known Allergies Allergy (Verified 01/20/25 13:45) Medication List - Last Reconciled 01/20/25 by Mely Wesley MD No Known Home Meds Tobacco use date assessed: 01/20/25 Dental Screening Dental Screen Date: 01/20/25 Did you have a dental visit in the last 12 months?: No Did you have a dental problem in the last 6 months where you did not have access to dental care?: No Was dental information given to patient?: No [facility] Medical History Chronic anemia Family History (Updated 01/20/25 @ 13:53 by Mely Wesley MD) Mother Diabetes Hypertension Hypercholesterolemia Father Skin cancer Colon cancer Brother No problems noted. Brother No problems noted. Sister No problems noted. Sister No problems noted. Daughter No problems noted. Son No problems noted. Son No problems noted. Paternal Grandfather Colon cancer Maternal Aunt Colon cancer Social History Household Members: Family Housing: House Alcohol intake: never Patient Tobacco Use Status: Never used Tobacco Tobacco use type: Cigarette e-Cigarette/Vaping Use: Never Used Second Hand Smoke Exposure: No service: No Current occupational status: employed Cognitive needs: No Hearing needs: No Vision needs: No Questionnaire PHQ-9 Over the last 2 weeks, how often have you been bothered by any of the following problems? 1. Little interest or pleasure in doing things: not at all 2. Feeling down, depressed, or hopeless: not at all 3. Trouble falling or staying asleep, or sleeping too much: not at all 4. Feeling tired or having little energy: not at all 5. Poor appetite or overeating: not at all 6. Feeling bad about yourself - or that you are a failure or have let yourself or your family down: not at all 7. Trouble concentrating on things, such as reading the newspaper or watching television: not at all 8. Moving or speaking so slowly that other people could have noticed. Or the opposite - being so fidgety or restless that you have been moving around a lot more than usual: not at all 9. Thoughts that you would be better off or of hurting yourself in some way: not at all Total score: 0 Depression Screening Interpretation: Negative Depression Screening Done: Yes 06316 - PHQ-9 Billing: Yes Source: Developed by Drs. Rufus Langston, Gemma Tobar, Constantine Ferrer and colleagues, with an educational gloria from [employer] Thrive Questionnaire Date Thrive assessed: 01/20/25 I am a: Patient What is your living situation today?: I have a steady place to live Within the past 12 months, did the food you bought not last and you didn't have the money to get more?: Never true Within the past 12 months, did you worry whether your food would run out before you got money to buy more?: Never true Do you have trouble paying for medicines?: No Do you have trouble getting transportation to medical appointments?: No Do you have trouble paying your heating and electricity bill?: No Do you have trouble taking care of your child, family member or friend?: No Do you have trouble with day-to-day activities such as bathing, preparing meals, shopping, managing finances, etc.?: No Are you currently unemployed and looking for a job?: No Are you interested in more education?: No THRIVE Score: 0 AUDIT C Alcohol Use Questionnaire (AUDIT-C) 1. How often do you have a drink containing alcohol?: Never 3. How often do you have six or more drinks on one occasion?: Never Total Score: 0 TONY-7 AMB Questionnaire TONY-7 Date TONY - 7 assessed: 01/20/25 Feeling nervous, anxious, or on edge: 0 = Not at all Not being able to stop or control worryin = Not at all Worrying too much about different things: 0 = Not at all Trouble relaxin = Not at all Being so restless that it is hard to sit still: 0 = Not at all Becoming easily annoyed or irritable: 0 = Not at all Feeling afraid as if something awful might happen: 0 = Not at all Total TONY-7 score (0-4 normal; 5-9 mild; 10-14 moderate; 15-21 severe): 0 Source: Developed by Drs. Rufus Langston, Gemma Tobar, Constantine Ferrer and colleagues, with an educational gloria from [employer] TONY-7 Assessment Billing TONY-7 Assessment Tool: TONY-7 Assessment 42686 Review of Systems Const Denies poor appetite and Denies weakness Eyes Denies no additional complaints ENT Reports Normal hearing present, Denies dizziness, Denies nasal congestion, Denies tinnitus and Denies sore throat Card Denies chest pain, Denies syncope, Denies rapid heart rate and Denies dyspnea Resp Denies cough and Denies dyspnea GI Denies change in stool character, Reports constipation, Denies diarrhea, Denies nausea and Denies vomiting Denies dysuria and Denies urinary frequency Neuro Reports Normal hearing present, Denies confusion, Denies dizziness, Denies syncope and Denies weakness Psych Denies confusion Physical exam (Primary Care) Vital Signs: Last Vital Signs Temp 97.3 F 01/20/25 13:42 Pulse 76 01/20/25 13:42 BP 128/84 01/20/25 13:42 Pulse Ox 96 01/20/25 13:42 Oxygen Delivery Method Room Air 01/20/25 13:42 BMI result Body Mass Index 35.6 Tobacco/Smoking Status: Tobacco use Status Tobacco use date assessed 01/20/25 01/20/25 13:46 Patient Tobacco Use Status Never used Tobacco 01/20/25 13:46 Tobacco use type Cigarette 01/20/25 13:46 e-Cigarette/Vaping Use Never Used 01/20/25 13:46 PHQ-9: PHQ-9 Score PHQ-9: Total score 0 01/20/25 13:46 Depression Screening Interpretation: Negative Thrive Assessment: Date of Thrive Assessment Date Thrive assessed 01/20/25 01/20/25 13:46 Const General: No confusion Orientation/consciousness: No confusion HENMT Head: Yes normocephalic Ears: external ears normal and TM's normal bilaterally Face and sinus: Yes normal facial exam Mouth: moist mucous membranes Throat: Yes tonsils normal Eyes Conjunctivae: conjunctivae normal Pupils: Equal, round and reactive pupils present and Pupil accommodation reflex normal Direct Ophthalmoscopy: normal light reflex Neck Neck: No lymphadenopathy Thyroid: Thyroid normal Chest Chest palpation & inspection: normal inspection of the chest Resp Effort & Inspection: normal respiratory effort and no audible wheezes Auscultation: clear to auscultation bilaterally, no crackles, no wheezes and lung sounds not diminished Cardio Rate: regular rate Rhythm: regular rhythm Peripheral pulses: radial pulses present and dorsalis pedis present GI Other: guaiac negative and prostate N Palpation (GI): no masses Auscultation: normal bowel sounds and normoactive bowel sounds Male General Exam: Yes normal external exam Skin General skin exam: no rashes or lesions noted Rashes: no rashes Neuro General: No confusion Cranial nerves: Yes Equal, round and reactive pupils present and Yes Normal hearing present Cognition (Neuro): normal cognition Gait exam (Neuro): Normal gait present Motor exam (neuro): 5/5 motor strength present throughout Deep tendon reflexes (DTR's): Right brachioradialis reflex intensity grade: 2+, Left brachioradialis reflex intensity grade: 2+, Right patellar reflex intensity grade: 2+ and Left patellar reflex intensity grade: 2+ Extrem General: No edema Office Procedures Flu Questionnaire Does the patient have a severe egg allergy?: No Does the patient have severe life threatening allergies?: No Does the patient have a fever or illness today?: No Has the patient ever had Guillain-Findlay Syndrome?: No Has the patient ever had any past reaction to a flu shot?: No Immunizations Fluarix [id number] (PF) 45 mcg (15 mcg x 3)/0.5 mL IM syringe Performing Provider: Mely Wesley MD [facility] Administered by: Heather Bryant CMA on 01/20/25 13:50 Dose Route Admin Location Dispensed Lot Number Expiration Date NDC Manager Respiratory 0.5 mL IM Right Deltoid 0.5 mL [id number] 09/23/25 02460-156-36 [employer] VIS Given Date VIS Provided VIS Publication Date 01/20/25 Single Vaccine 24 Eligibility Eligibility Date Funding Source Not [facility] Eligible 01/20/25 Private Coding Level of Care Code Est Pt Prev Care 40-64y(49956) Diagnoses Annual physical exam Z00.00 Anemia D64.9 Colon cancer screening Z12.11 Impaired glucose tolerance R73.02 Hypercholesterolemia E78.00 Family history of colon cancer Z80.0 Additional Codes TONY-7 Assessment Billing - TONY-7 Assessment Tool: TONY-7 Assessment 60273 ([id number]) PHQ-9 - 27652 - PHQ-9 Billing: Yes ([id number]) Assessment & Plan Assessment & Plan (1) Annual physical exam: Code(s): Z00.00 - Encounter for general adult medical examination without abnormal findings Category: Medical Plan: Patient is advised to eat healthy, keep well hydrated, keep active and have adequate sleep. (2) Anemia: Code(s): D64.9 - Anemia, unspecified Category: Medical Plan: Patient has seen hematology oncology and will continue to monitor (3) Colon cancer screening: Code(s): Z12.11 - Encounter for screening for malignant neoplasm of colon Category: Medical Plan: Patient is reminded about gastroenterology (4) Impaired glucose tolerance: Code(s): R73.02 - Impaired glucose tolerance (oral) Category: Medical Plan: Decrease the amount of carbohydrate intake, pasta, bread, rice and potatoes are all sugar and that is aside from all the sweet stuff, remember that fruits are good but they are Sweet also. (5) Hypercholesterolemia: Code(s): E78.00 - Pure hypercholesterolemia, unspecified Category: Medical Plan: Avoid fried foods, chicken skin, eggs, butter margarine, pastries and meat. Be it pork or beef they have a lot of cholesterol (6) Family history of colon cancer: Comment: father 62 years old Code(s): Z80.0 - Family history of malignant neoplasm of digestive organs Category: Medical Plan History of Present Illness The patient is a 55-year-old obese male presenting for a physical examination. He has a history of chronic normocytic anemia, with a hemoglobin of 11.9 and hematocrit of 33.3 noted in September 2024. He was seen by hematology/oncology in September 2024, and after a negative workup, he was advised to continue monitoring his condition. Past medical history is also significant for impaired glucose tolerance and hypercholesterolemia. His last blood sugar was 100 mg/dL in January 2024, and a lipid panel from August showed an LDL of 138 mg/dL and triglycerides of 206 mg/dL. His B12 and thyroid levels were normal. He had an ER visit in January of last year for parotitis, which was treated with Augmentin. Relevant family history includes a father with colon cancer, as well as a paternal aunt and paternal grandfather with a history of cancer. There is no family history of heart attack. The patient does not take any medications and has no known drug allergies. He denies any alcohol use or smoking. Health Maintenance - Colon cancer screening: Patient has a significant family history of colon cancer and is pending a colonoscopy; a new referral will be sent to gastroenterology. - Lipid and glucose screening: Due to a history of hypercholesterolemia and impaired glucose tolerance, a new fasting lab order was placed to check sugar and cholesterol levels. - Eye exam: Patient's last eye exam was 4 years ago; it is recommended to have one every 2 years. - Immunizations: The patient received a shingles shot last month and was advised of the importance of the flu vaccine; the pneumococcal vaccine was also discussed as an option available at the pharmacy. - Weight management: ; the importance of weight management through diet, hydration, and activity was discussed. Social History - Substance Use: The patient denies any alcohol consumption or smoking. - Weight Status: The patient is obese - Diet and Exercise: The patient was counseled on eating healthy, drinking enough water, and staying active. - Language: The patient declined the need for an wax ball molder. Review of Systems - Constitutional: Denies fever. - HEENT: Reports good hearing. Denies dizziness or vision problems. - Cardiovascular: Denies syncope or chest pain. - Respiratory: Denies waking up with shortness of breath. - Gastrointestinal: Denies nausea, vomiting, dysphagia, constipation, or diarrhea. - Genitourinary: Denies urinary problems or nocturia. Physical Exam General: Cooperative, healthy appearing, comfortable, no acute distress and well developed Orientation: Patient oriented x3 Limitations: No limitations Head: Normal to inspection Ears: Hearing very good bilaterally, a little bit of ear wax noted Nose: Normal external nose present Face and sinus: Normal facial exam Eyes: Appearance normal, both eyes and all related structures, no recent eye exam in 4 years Neck: Normal visual inspection and Yes full ROM Respiratory: Normal respiratory effort and able to speak in complete sentences. Clear to auscultation bilaterally Cardiovascular: Regular rate and rhythm. Normal S1 and S2 GI: Normal to inspection. Soft to palpation and nontender Skin: No rashes or lesions noted Neuro: Patient oriented x3 Extremities: Normal to inspection Results - Lab results from January 2024: Renal function was better at 1.21, electrolytes were normal, and blood sugar was 100 mg/dL. - Lab results from October 15, 2024: Hemoglobin was 11.9 g/dL and hematocrit was 33.3%. - Lab results from August (year not specified): LDL was 138 mg/dL and triglycerides were 206 mg/dL. - Other unspecified labs: B12 and thyroid studies were normal. Plan Patient was informed and verbally consented to the use of an ambient scribe for clinic note documentation during this visit. 1. Normocytic Anemia The patient has a history of chronic normocytic anemia, which was evaluated by hematology oncology with a negative workup. The plan is to continue monitoring as per their recommendation. The director education was also awaiting the results of a colonoscopy. 2. Hypercholesterolemia And Impaired Glucose Tolerance Given his history of hypercholesterolemia and impaired glucose tolerance, a fasting blood test has been ordered to re-evaluate his lipid panel and glucose levels. The patient was instructed to fast for 8 hours prior to the blood draw. Lifestyle modifications including healthy eating and staying active were also reinforced. 3. Health Maintenance: Colon Cancer Screening Due to a significant family history of colon cancer, the patient is due for a colonoscopy. A new referral will be sent to gastroenterology to facilitate scheduling. 4. Obesity The patient is obese and has gained weight since his last visit a year ago. He was counseled that his weight is his primary health problem and was encouraged to eat healthy, drink enough water, and stay active. Discussion Notes I discussed with the patient that while his overall health is good, his primary concern is his weight, noting he has gained weight since his last visit. We reviewed his chronic anemia and the plan from hematology to continue monitoring, and I noted that his colonoscopy is also awaited by hematology. I informed him that I am ordering new fasting blood work to recheck his cholesterol and sugar levels and will re-issue the referral for his colonoscopy. We discussed immunizations, acknowledging his recent shingles vaccine and emphasizing the importance of the flu shot. I also informed him about the optional pneumococcal vaccine available at the pharmacy. I encouraged him to continue with healthy lifestyle choices, including diet, hydration, and activity, and advised we would follow up after his lab results are available. Patient Instructions - Please get your blood work done. You will need to fast (no food) for 8 hours before the test. You can drink sips of water. - Our office will send a new referral for you to schedule a colonoscopy with a specialist (b2b sales consultant). - Continue to focus on weight management by eating a healthy diet, staying active, and drinking plenty of water. - It is important to get your yearly flu shot. A vaccine for pneumonia is also available at the pharmacy if you are interested. - Please schedule an eye exam, as it is recommended to have one every two years. - We will contact you to discuss your blood test results once they are available. Orders: Orders Influenza [id number] Immunization Today Z23 - Encounter for immunization Free T4 (Free Thyroxine) Today R73.02 - Impaired glucose tolerance (oral) Comprehensive Met. Panel Today R73.02 - Impaired glucose tolerance (oral) Thyroid Stimulating Hormone Today R73.02 - Impaired glucose tolerance (oral) Ferritin Today R73.02 - Impaired glucose tolerance (oral) Prostate Specific Antigen Scr Today R73.02 - Impaired glucose tolerance (oral) Hemoglobin A1c Today R73.02 - Impaired glucose tolerance (oral) Complete Blood Count Auto Diff Today R73.02 - Impaired glucose tolerance (oral) Lipid Panel Today E78.00 - Pure hypercholesterolemia, unspecified, R73.02 - Impaired glucose tolerance (oral) IRON PROFILE Today R73.02 - Impaired glucose tolerance (oral) Reticulocyte Count Today R73.02 - Impaired glucose tolerance (oral) Vitamin B12 and Folate Today R73.02 - Impaired glucose tolerance (oral) UA CC w/rflx Micro + Cult Today R30.0 - Dysuria, R73.02 - Impaired glucose tolerance (oral) Referrals Gastroenterology Referral Z12.11 - Encounter for screening for malignant neoplasm of colon, Z80.0 - Family history of malignant neoplasm of digestive organs
== END 2025-01-20 14:05 | disposition home or self-care (01) ==
LOC: HO.HMCH 13:39
PROVIDERS: PCP Internal Medicine; Visit Provider Internal Medicine
DX: Z00.00 Encounter for general adult medical examination without abnormal findings (principal); D64.9 Anemia, unspecified; Z12.11 Encounter for screening for malignant neoplasm of colon; R73.02 Impaired glucose tolerance (oral); E78.00 Pure hypercholesterolemia, unspecified; Z80.0 Family history of malignant neoplasm of digestive organs; Z23 Encounter for immunization

== ENCOUNTER → 2025-01-20 13:38 | Outpatient (BNVA) | payer OTHER, SELFPAY | PROVIDERS: PCP Internal Medicine; Visit Provider Internal Medicine | DX: Z00.00 Encounter for general adult medical examination without abnormal findings (principal); D64.9 Anemia, unspecified; R73.02 Impaired glucose tolerance (oral); E78.00 Pure hypercholesterolemia, unspecified; E66.9 Obesity, unspecified; R30.0 Dysuria; Z23 Encounter for immunization; Z68.35 Body mass index [BMI] 35.0-35.9, adult; Z80.0 Family history of malignant neoplasm of digestive organs | CPT/HCPCS: 90471; 90656; 96127 ==

== ENCOUNTER 2025-01-21 07:32 | Outpatient (REF) | payer OTHER, SELFPAY ==
[2025-01-21 07:44] LABS: MANUAL DIFF FLAG NO
[2025-01-21 08:08] LABS: Hematocrit 35.1 % (42.0-52.0); Hemoglobin 12.0 g/dl (14.0-18.0); Imm Gran Abs Auto 0.01 X10*3/uL (0.00-0.03); Imm Gran Pct Auto 0.2 % (0.0-0.4); Lymphocytes Absolute Auto 1.4 X10*3/uL (1.2-4.9); Mean Corpuscular HGB Conc 34.2 g/dl (31.0-36.0); Mean Corpuscular Hemoglobin 29.0 pg (27.0-33.0); Mean Corpuscular Volume 84.8 fL (80.0-98.0); NRBC Abs Auto 0.000 X10*3/uL (0.0-0.012); NRBC Pct Auto 0.0 /100WBC (0.0-0.2); Platelet Count 181 X10*3/uL (160-400); Red Blood Count 4.14 X10*6/uL (4.60-5.80); Reticulocytes Absolute 0.081 X10*6/uL (0.026-0.095); White Blood Count 5.8 X10*3/uL (4.8-10.8)
[2025-01-21 08:11] LABS: Appearance Urine Clear; Glucose Urine UA Negative (Negative); PH 5.0 (5.0-9.0); Specific Gravity - Urine 1.020 (1.005-1.025)
[2025-01-21 08:33] LABS: Alanine Aminotransferase 20 U/L (0-40); Albumin Level 4.6 g/dL (3.5-5.0); Alkaline Phosphatase 77 U/L (39-117); Anion Gap 11 (12-20); Aspartate Amino Transferase 26 U/L (5-37); Blood Urea Nitrogen 17 mg/dL (9-16); Calcium 9.5 mg/dL (8.4-10.2); Carbon Dioxide 29 mmol/L (22-29); Chloride 107 mmol/L (96-108); Cholesterol 226 mg/dL (<200); Estimated Glomerular Filt Rate > 60; HDL Cholesterol 40 mg/dL (>40); Iron 80 mcg/dL (45-160); Percent Iron Saturation 32 % (15-50); Potassium 4.4 mmol/L (3.3-5.1); Sodium 143 mmol/L (135-145); Total Iron Binding Capacity 247 mcg/dL (228-428); Total Protein 7.4 g/dL (6.5-8.0); Triglycerides 214 mg/dL (<150); Unsaturated Iron Binding 167 ug/dL
[2025-01-21 08:43] LABS: Ferritin 178 ng/mL (20-250); Free T4 (Free Thyroxine) 0.84 ng/dL (0.71-1.85); Thyroid Stimulating Hormone 1.56 uIU/mL (0.32-4.0)
[2025-01-21 08:59] LABS: Folate 13.4 ng/mL (> or = 4.0); Vitamin B12 303 pg/mL (200-900)
== END 2025-01-21 07:33 | disposition home or self-care (01) ==
LOC: HO.LAB 07:32
PROVIDERS: PCP Internal Medicine; Visit Provider Internal Medicine
DX: Z12.5 Encounter for screening for malignant neoplasm of prostate (principal); E78.00 Pure hypercholesterolemia, unspecified; R30.0 Dysuria; R73.02 Impaired glucose tolerance (oral)
CPT/HCPCS: 36415; 80053; 80061; 81003; 82607; 82728; 82746; 83036; 83540; 84153; 84439; 84443; 85025; 85045